=== PATIENT | female | born 1965 | race Caucasian/White ===

== ENCOUNTER 2017-11-27 06:17 | Emergency (ER) | payer OTHER ==
[~2017-11-27] VITALS: Ht 160 cm; Wt 76.7 kg
[2017-11-27] MEDS ORDERED: KETOROLAC TROMETH 60MG/2ML VIAL IM ONE ×3 (06:59→08:00)
[2017-11-27 07:51] VITALS: BP 151/106
[2017-11-27] MEDS ORDERED: HYDROcodone-ACET 10/325MG TAB PO ONE (08:15)
== END 2017-11-27 09:01 | disposition home or self-care (01) ==
LOC: ER 06:17
DX: S46.911A Strain of unspecified muscle, fascia and tendon at shoulder and upper arm level, right arm, initial encounter (principal); X58.XXXA Exposure to other specified factors, initial encounter; Y93.89 Activity, other specified; Y99.8 Other external cause status; Y92.89 Other specified places as the place of occurrence of the external cause
CPT/HCPCS: 73030; 73060; 96372; 99284; J1885